=== PATIENT | male | born 1945 | race Caucasian/White ===

== ENCOUNTER 2017-04-13 08:55 | Emergency (ER) | payer OTHER ==
[2017-04-13 09:13] VITALS: RESP 18; TEMP 98
--- NOTE | 2017-04-13 09:57 | EDPHY ---
H & P Stated Complaint: 2 days of Lt ear pain with Lt eye lid swelling and aura in eye vision Time Seen by Provider: 04/13/17 09:39 HPI/ROS: Chief Complaint: Ear pain HPI: 71-year-old male began developing pain in his left ear and behind his left ear yesterday. Does not have a history of ear infections in the past. Has not stooled any foreign bodies. He does use nasal rinses and is wondering if he may have caused an infection by overly aggressively rinsing. Was noticing a little bit of irritation in his left upper eyelid. No skin rashes. No fevers or chills. No vision or hearing changes. ROS: 10 point Review of Systems is negative except as noted in the HPI. PMH: Achalasia, kidney stones Social History: No smoking, no alcohol, no recreational drug use Family History: non-contributory Physical Exam: Gen: Awake, Alert, No Distress HEENT: Ears: Bilateral TMs normal, bilateral ear canals normal, No mastoid tenderness, no rashes Nose: no rhinorrhea Eyes: PERRLA, EOMI Mouth: Moist mucosa Neck: Supple, no JVD Chest: nontender, lungs clear to auscultation Heart: S1, S2 normal, no murmur Abd: Soft, non-tender, no guarding Back: no CVA tenderness, no midline tenderness Ext: no edema, non-tender Skin: no rash Neuro: CN II-XII intact, Sensation grossly intact, Strength 5/5 in bilateral upper and lower extremities - Personal History Current Tetanus Diphtheria and Acellular Pertussis (TDAP): Yes Tetanus Vaccine Date: WITHIN 10 YRS - Medical/Surgical History Hx Asthma: Yes Hx Chronic Respiratory Disease: No Hx Diabetes: No Hx Cardiac Disease: No Hx Renal Disease: Yes Hx Cirrhosis: No Hx Alcoholism: No Hx HIV/AIDS: No Hx Splenectomy or Spleen Trauma: No Other PMH: echelasia,some calcification on heart scan. HTN,cholesterol, Septic Pneumonia. hashimotos. asthma. Kidney stones - Social History Smoking Status: Former smoker Constitutional: Initial Vital Signs Temperature (C) 36.6 C 04/13/17 09:11 Heart Rate 85 04/13/17 09:11 Respiratory Rate 18 04/13/17 09:11 Blood Pressure 134/88 H 04/13/17 09:11 O2 Sat (%) 97 04/13/17 09:11 O2 Delivery Mode Room Air Allergies/Adverse Reactions: No Known Allergies Allergy (Verified 05/15/15 15:34) Home Medications: Medication Instructions Recorded Levothyroxine [Synthroid 75 mcg 75 mcg PO DAILY06 02/05/12 (*)] Losartan Potassium [Cozaar] 100 mg PO DAILY 02/05/12 Aspirin [Aspirin 81mg (*)] 81 mg PO DAILY 07/31/13 Fluticasone Nasal [Flonase Nasal 1 sprays EACHNARE BID PRN 07/31/13 [place]] Multivitamins [Multivitamin (*)] 1 tab PO DAILY 07/31/13 AZITHROMYCIN [Z-PACK] 250 mg PO DAILY #6 tab 02/10/16 Hydrocodone/Acetaminophen 1 - 2 each PO Q4-6PRN PRN #10 04/13/17 [Hydrocodon-Acetaminophen 5-325] tablet Valacyclovir HCl [Valtrex] 1,000 mg PO TID #21 tab 04/13/17 Medical Decision Making ED Course/Re-evaluation: Patient complaining of left ear pain. No findings suggestive of acute infectious cause. No temporomandibular joint tenderness. No dental pain. No rashes. He is describing pain in his left ear around in going forward on his face. I believe this is likely neurologic problem. He either a trigeminal neuralgia or more likely an early shingles. Will write a prescription for analgesia. I wrote him a prescription for Valtrex. He will start this if he starts developed a lesion. I think he will need several days for this to declare itself. He will follow up with primary care physician. He will return for worsening. Departure - Departure Disposition: Home, Routine, Self-Care Clinical Impression: Shingles Condition: Good Instructions: Shingles (ED) Additional Instructions: Start with ibuprofen 600 mg 3 times a day. He may take Vicodin as needed for breakthrough pain. If you develop a rash or small bumps start the Valtrex. Follow up with primary care physician in in 2-3 days for recheck. Return to the emergency depart for increasing pain, fevers or chills, worsening vision, or any other concerns. Referrals: Eitan Grove MD [Primary Care Provider] - As per Instructions Prescriptions: Hydrocodone/Acetaminophen [Hydrocodon-Acetaminophen 5-325] 1 - 2 each PO Q4- 6PRN PRN #10 tablet PRN Reason: Pain, Severe Valacyclovir HCl [Valtrex] 1,000 mg PO TID #21 tab
[2017-04-13 10:25] VITALS: BP 124/66; PULSE 78; O2SAT 96
== END 2017-04-13 10:24 | disposition home or self-care (01) ==
LOC: CED 08:55
DX: B02.9 Zoster without complications (principal); J45.909 Unspecified asthma, uncomplicated; I10 Essential (primary) hypertension; Z87.891 Personal history of nicotine dependence; Z79.82 Long term (current) use of aspirin

== ENCOUNTER → 2017-06-25 | Outpatient (CLI) | payer OTHER ==
[~2017-06-25] MED LIST: GADOBUTROL 10 ML VIAL IVP ONE
== END ==
LOC: FIMAGING 14:43
PROVIDERS: ATTEND Ophthalmology
DX: R90.82 White matter disease, unspecified (principal); J34.89 Other specified disorders of nose and nasal sinuses; Z98.890 Other specified postprocedural states
CPT/HCPCS: 70543; A9585

== ENCOUNTER → 2018-01-05 | Outpatient (CLI) | payer OTHER | LOC: BHFA 14:00 | PROVIDERS: ATTEND Internal Medicine Cardiovascular Disease | DX: I25.10 Atherosclerotic heart disease of native coronary artery without angina pectoris (principal); M79.606 Pain in leg, unspecified; G62.9 Polyneuropathy, unspecified ==

== ENCOUNTER → 2018-01-07 | Outpatient (CLI) | payer OTHER ==
[~2018-01-07] MED LIST changes: -GADOBUTROL 10 ML VIAL IVP ONE; +IOPAMIDOL (ISOVUE 370) 100 ML BTL IV ONE
== END ==
LOC: FIMAGING 08:55
PROVIDERS: ATTEND Internal Medicine Cardiovascular Disease
DX: G62.9 Polyneuropathy, unspecified (principal); I25.10 Atherosclerotic heart disease of native coronary artery without angina pectoris; N26.1 Atrophy of kidney (terminal)
CPT/HCPCS: 75635; Q9967; 82565-PO

== ENCOUNTER → 2018-01-18 | Outpatient (CLI) | payer OTHER | LOC: BHLMT 14:00 | PROVIDERS: ATTEND Internal Medicine Interventional Cardiology | DX: I25.10 Atherosclerotic heart disease of native coronary artery without angina pectoris (principal) | CPT/HCPCS: 78452; 93017; A9500 ==